=== PATIENT | female | born 1985 | race Caucasian/White ===

== ENCOUNTER 2016-03-26 11:40 | Emergency (ER) | payer MEDICAID ==
[~2016-03-26] VITALS: Ht 152.4 cm; Wt 74.8 kg
[~2016-03-26 11:40] MED LIST: ACDPT PO; ALBU8.5H4 IH; AMX500CIP PO; ASPI-74 PO; BREA1EAC5 MC; CEPH500C PO; CETI10CA PO; CLON0.5T3 PO; DCS100C PO; DULO30CA PO; FAMO20TA5 PO; FRS325T PO; HYDR-3720 PO; IBP800T PO; IBUP800T26 PO; LORA10CA PO; LRT10T PO; MELA5CAP PO; NF-CARB200 PO; NUVA RING VG; OXYC-12 PO; OXYM30SP NS; PREN1TAB19 PO; PREN1TAB39 PO; TRAM50TA2 PO; ZLP10T PO
[2016-03-26] MEDS ORDERED: AMIT75TA2 (12:13)
[2016-03-26] MEDS ORDERED: ALPR0.5T7 (12:13)
[2016-03-26] MEDS ORDERED: GABA600T2 (12:13)
[2016-03-26] MEDS ORDERED: CETI10TA17 (12:13)
[2016-03-26] MEDS ORDERED: LIDOCAINE 2% VISCOUS 15 ML UDC PO ONE (12:45)
[2016-03-26] MEDS ORDERED: ANTACID SUSP 30 ML UDC (MYLANTA) PO ONE (12:45)
--- NOTE | 2016-03-26 12:45 | ED Chest Pain ---
General Chief Complaint: Chest Pain Stated Complaint: CHEST PAIN Nursing Triage Note: PT COMPLAINS OF CHEST/EPIGASTRIC PAIN X3 DAYS THAT COMES AND GOES. Nursing Sepsis Screen: No Definite Risk Source: patient Exam Limitations: no limitations History of Present Illness Time seen by provider: 12:43 Initial Comments To ER with midline epigastric/lower chest pain for 3 days waxing and waning. She does not identify any modifying factors. Food does not affect this. No nausea vomiting shortness of breath. She initially believe this may be a panic attack so she took a Xanax on day 1 of this without any improvement. Timing/Duration: 2-3 days Severity/Quality: moderate Location: central Radiation: no radiation ASA po CARTOGRAPHIC DESIGNER: No NTG SL CARTOGRAPHIC DESIGNER: No Associated Symptoms: No nausea/vomiting, No rash, No shortness of breath, No swelling/lump in chest Allergies and Home Medications Allergies Coded Allergies: latex (Unverified Allergy, 06/24/09) adhesive tape (Verified Adverse Reaction, Intermediate, skin tears, ) Home Medications Alprazolam 0.5 Mg Tablet #54 (Reported) Amitriptyline HCl 75 Mg Tablet #30 (Reported) Cetirizine HCl 10 Mg Tablet #30 (Reported) Gabapentin 600 Mg Tablet #360 (Reported) Review of Systems Constitutional: see HPI EENTM: No Symptoms Reported Respiratory: No Symptoms Reported Cardiovascular: See HPI Chest Pain Gastrointestinal: See HPIDenies Abdominal Pain, Denies Nausea Genitourinary: No Symptoms Reported Musculoskeletal: no symptoms reported Skin: no symptoms reported Psychiatric/Neurological: No Symptoms Reported Endocrine: No Symptoms Reported Hematologic/Lymphatic: No Symptoms Reported Past Zcdnuys-Xztutf-Qlvrrx Hx Patient Social History Alcohol Use: Denies Use Recreational Drug Use: No Smoking Status: Current Everyday Smoker Recent Foreign Travel: No Contact w/Someone Who Travel: No Recent Infectious Disease Expo: No Recent Hopitalizations: Yes (CHILD ) Immunizations Up To Date Date of Influenza Vaccine: Oct 19, 2012 Surgeries HX Surgeries: Yes (, WISDOM TEETH, RIGHT KNEE ARTH) Respiratory Hx Respiratory Disorders: No Cardiovascular Hx Cardiac Disorders: Yes (TACHY) Neurological Hx Neurological Disorders: No Reproductive System Hx Reproductive Disorders: No Female Reproductive Disorders: Denies Genitourinary Hx Genitourinary Disorders: No Gastrointestinal Hx Gastrointestinal Disorders: No Musculoskeletal Hx Musculoskeletal Disorders: No Endocrine Hx Endocrine Disorders: No HEENT HX ENT Disorders: No Cancer Hx Cancer: No Psychosocial Hx Psychiatric Problems: No Integumentary HX Skin/Integumentary Disorder: No Blood Transfusions Hx Blood Disorders: No Family Medical History Significant Family History: No Pertinent Family Hx Family Medial History: Cancer Family history: Diabetes mellitus Psychotic disorder Physical Exam Vital Signs Vital Sign - Last 12Hours 03/26/16 12:09 Temp 98.0 Pulse 81 Resp 18 B/P 115/76 Pulse Ox 98 O2 Delivery Room Air Capillary Refill : Less Than 3 Seconds General Appearance: No Apparent Distress WD/WN HEENT: PERRL/EOMI TMs Normal Neck: Full Range of Motion Normal Inspection Respiratory: Lungs Clear Normal Breath Sounds No Accessory Muscle Use No Respiratory Distress Cardiovascular: Regular Rate, Rhythm Normal Peripheral Pulses Gastrointestinal: Normal Bowel Sounds Non Tender Soft Extremity: Normal Capillary Refill Normal Inspection Neurologic/Psychiatric: Alert Oriented x3 No Motor/Sensory Deficits Skin: Normal Color Warm/Dry Progress/Results/Core Measures Results/Orders Lab Results Laboratory Tests Test 03/26/16 13:00 03/26/16 13:14 Range/Units Alanine Aminotransferase (ALT/SGPT) 45 0-55 U/L Albumin 4.1 3.2-4.5 G/DL Alkaline Phosphatase 69 40-136 U/L Anion Gap 9 5-14 MMOL/L Aspartate Amino Transf (AST/SGOT) 30 5-34 U/L BUN/Creatinine Ratio 8 Basophils # (Auto) 0.0 0.0-0.1 10^3/uL Basophils (%) (Auto) 0 0-10 % Blood Urea Nitrogen 6 L 7-18 MG/DL Calcium Level 8.9 8.5-10.1 MG/DL Carbon Dioxide Level 25 21-32 MMOL/L Chloride Level 105 98-107 MMOL/L Creatinine 0.73 0.60-1.30 MG/DL Eosinophils # (Auto) 0.2 0.0-0.3 10^3/uL Eosinophils (%) (Auto) 3 0-10 % Estimat Glomerular Filtration Rate > 60 Glucose Level 91 70-105 MG/DL Hematocrit 38 35-52 % Hemoglobin 12.9 11.5-16.0 G/DL Lipase 18 8-78 U/L Lymphocytes # (Auto) 1.7 1.0-4.0 X 10^3 Lymphocytes (%) (Auto) 30 12-44 % Mean Corpuscular Hemoglobin 30 25-34 PG Mean Corpuscular Hemoglobin Concent 34 32-36 G/DL Mean Corpuscular Volume 87 80-99 FL Mean Platelet Volume 9.2 7.4-10.4 FL Monocytes # (Auto) 0.3 0.0-1.0 X 10^3 Monocytes (%) (Auto) 5 0-12 % Neutrophils # (Auto) 3.5 1.8-7.8 X 10^3 Neutrophils (%) (Auto) 61 42-75 % Platelet Count 218 130-400 10^3/uL Potassium Level 3.8 3.6-5.0 MMOL/L Red Blood Count 4.37 4.35-5.85 10^6/uL Red Cell Distribution Width 13.6 10.0-14.5 % Sodium Level 139 135-145 MMOL/L Total Bilirubin 0.5 0.1-1.0 MG/DL Total Protein 7.0 6.4-8.2 G/DL White Blood Count 5.8 4.3-11.0 10^3/uL Urine Bacteria NEGATIVE /HPF Urine Bilirubin NEGATIVE NEGATIVE Urine Casts NONE /LPF Urine Clarity CLEAR Urine Color YELLOW Urine Crystals NONE /LPF Urine Culture Indicated NO Urine Glucose (UA) NEGATIVE NEGATIVE Urine Ketones NEGATIVE NEGATIVE Urine Leukocyte Esterase NEGATIVE NEGATIVE Urine Mucus NEGATIVE /LPF Urine Nitrite NEGATIVE NEGATIVE Urine Protein NEGATIVE NEGATIVE Urine RBC NONE /HPF Urine RBC (Auto) NEGATIVE NEGATIVE Urine Specific [place]ster 1.015 L 1.016-1.022 Urine Squamous Epithelial Cells >50 H /HPF Urine Urobilinogen NORMAL NORMAL MG/DL Urine WBC NONE /HPF Urine pH 8 5-9 Louise Murillo-ALCIDES RYDER [facility] NURSE Cbc With Automated Diff (03/26/16 12:38) Comprehensive Metabolic Panel (03/26/16 12:38) Lipase (03/26/16 12:38) Ua Culture If Indicated (03/26/16 12:38) Antacid Suspension (Mylanta Suspension (03/26/16 12:45) Lidocaine 2% Viscous 15 Ml (Xylocaine Vi (03/26/16 12:45) Saline Lock/Iv-Start (03/26/16 12:42) Saline Lock/Iv-Start (03/26/16 12:42) Ekg Tracing (03/26/16 12:43) Us Gallbladder 01855 (03/26/16 13:27) Medications Given in ED Current Medications Medications Dose Ordered Sig/Bola Route Start Time Stop Time Status Last Admin Dose Admin Al Hydrox/Mg Hydrox/Simethicone 30 ml ONCE ONCE PO 03/26/16 12:45 03/26/16 12:46 DC 03/26/16 12:47 30 ML Lidocaine HCl 15 ml ONCE ONCE PO 03/26/16 12:45 03/26/16 12:46 DC 03/26/16 12:47 15 ML Vital Signs/I&O Vital Sign - Last 12Hours 03/26/16 12:09 Temp 98.0 Pulse 81 Resp 18 B/P 115/76 Pulse Ox 98 O2 Delivery Room Air Blood Pressure Mean: 89 Departure Communication Progress Notes 1401-no improvement after GI cocktail. Bilateral ultrasound was unremarkable. Patient states "I wonder if this could all just be stress". States that her sister and sister's figeetha are living with her along with her child and has been under increased stress lately. Impression Impression: Primary Impression: Epigastric pain Disposition: HOME, SELF-CARE Condition: Stable Departure-Patient Inst. Decision time for Depature: 13:59 Referrals: [facility] (PCP/Family) Primary Care Physician Patient Instructions: Chest Pain, Acid Reflux (Gastroesophageal Reflux Disease) , Adult (DC) Add. Discharge Instructions: 1. Take the S foam cutting supervisor as directed 2. Follow-up with your doctor next week 3. Return to ER for any worsening All discharge instructions reviewed with patient and/or family. Voiced understanding. ALCIDES RYDER APRN Mar 26, 2016 12:45
[2016-03-26 13:08] LABS: BASOPHILS % (AUTO) 0 % (0-10); EOSINOPHILS # (AUTO) 0.2 10^3/uL (0.0-0.3); EOSINOPHILS % (AUTO) 3 % (0-10); LYMPHOCYTES # (AUTO) 1.7 X 10^3 (1.0-4.0); LYMPHOCYTES % (AUTO) 30 % (12-44); MEAN CORPUSCULAR HEMOGLOBIN 30 PG (25-34); MEAN CORPUSCULAR HGB CONC 34 G/DL (32-36); MEAN CORPUSCULAR VOLUME 87 FL (80-99); MEAN PLATELET VOLUME 9.2 FL (7.4-10.4); MONOCYTES # (AUTO) 0.3 X 10^3 (0.0-1.0); MONOCYTES % (AUTO) 5 % (0-12); NEUTROPHILS # (AUTO) 3.5 X 10^3 (1.8-7.8); NEUTROPHILS % (AUTO) 61 % (42-75); PLATELET COUNT 218 10^3/uL (130-400); RED BLOOD COUNT 4.37 10^6/uL (4.35-5.85); RED CELL DISTRIBUTION WIDTH 13.6 % (10.0-14.5); WHITE BLOOD COUNT 5.8 10^3/uL (4.3-11.0)
[2016-03-26 13:17] LABS: BILIRUBIN,URINE NEGATIVE (NEGATIVE); KETONES,URINE NEGATIVE (NEGATIVE); LEUKOCYTE ESTERASE ,URINE NEGATIVE (NEGATIVE); NITRITE,URINE NEGATIVE (NEGATIVE); PH,URINE 8 (5-9); PROTEIN,URINE NEGATIVE (NEGATIVE); UROBILINOGEN,URINE NORMAL (NORMAL)
[2016-03-26 13:23] LABS: SQUAMOUS EPITHELIAL CELL,UR >50 /HPF
[2016-03-26 13:25] LABS: ALANINE AMINOTRANSFERASE 45 U/L (0-55); ALBUMIN 4.1 G/DL (3.2-4.5); ANION GAP 9 MMOL/L (5-14); ASPARTATE AMINO TRANSFERASE 30 U/L (5-34); BILIRUBIN,TOTAL 0.5 MG/DL (0.1-1.0); BLOOD UREA NITROGEN 6 MG/DL (7-18); BUN/CREATININE RATIO 8; CALCIUM 8.9 MG/DL (8.5-10.1); CARBON DIOXIDE 25 MMOL/L (21-32); CHLORIDE 105 MMOL/L (98-107); CREATININE SERUM 0.73 MG/DL (0.60-1.30); GFR ESTIMATED > 60; GLUCOSE 91 MG/DL (70-105); LIPASE 18 U/L (8-78); POTASSIUM 3.8 MMOL/L (3.6-5.0); SODIUM 139 MMOL/L (135-145)
[2016-03-26 14:09] VITALS: BP 123/78
--- NOTE | 2016-03-26 14:44 | Diagnostic Imaging Report ---
PROCEDURE: US Gallbladder. TECHNIQUE: Multiple real-time grayscale images were obtained over the right upper quadrant in various projections. INDICATION: Sharp mid epigastric pain radiating to the chest. COMPARISON: None. DISCUSSION: Sonographic evaluation of the right upper quadrant was performed. The liver appears normal in echotexture and size. No hepatic mass identified. The gallbladder appears normal without evidence of cholelithiasis, wall thickening, or pericholecystic fluid. No evidence of biliary duct dilatation. The common bile duct is normal measuring 0.5 cm. The pancreas is mostly obscured due to overlying bowel gas. The right kidney appears normal in echotexture and size without evidence of hydronephrosis or renal mass. The right kidney measures 10.4 cm. There is no ascites or abnormal bowel loops identified. No sonographic Rios sign was reported. IMPRESSION: 1. Unremarkable right upper quadrant ultrasound. Dictated by: Dictated on workstation # [id number]
== END 2016-03-26 14:09 | disposition home or self-care (01) ==
LOC: EDUNIT# 11:40 → ER 11:42
DX: R10.13 Epigastric pain (principal); F17.210 Nicotine dependence, cigarettes, uncomplicated
CPT/HCPCS: 36415; 76705; 80053; 81000; 83690; 85025; 93005

== ENCOUNTER → 2017-09-15 | Outpatient (CLI) | payer MEDICAID ==
[~2017-09-15] MED LIST changes: +ALPR0.5T7; +AMIT75TA2; +CETI10TA17; +GABA600T2
--- NOTE | 2017-09-15 13:15 | Diagnostic Imaging Report ---
INDICATION: Wrist pain. Three views were obtained. FINDINGS: The alignment is normal. There is no fracture or dislocation. Soft tissues are unremarkable. IMPRESSION: No acute fracture or dislocation. Dictated by: Dictated on workstation # [id number]
== END ==
LOC: RAD 12:50
PROVIDERS: ATTEND Nurse Practitioner Family
DX: M25.532 Pain in left wrist (principal)
CPT/HCPCS: 73110

== ENCOUNTER 2018-01-22 14:00 | Emergency (ER) | payer SELFPAY ==
[~2018-01-22] VITALS: Ht 154.9 cm; Wt 73.5 kg
--- NOTE | 2018-01-22 14:14 | ED GU-Female ---
General Stated Complaint: TUBES TIED,STATES SHE IS Source: patient Exam Limitations: no limitations History of Present Illness Date Seen by Provider: Jan 22, 2018 Time Seen by Provider: 14:13 Initial Comments To ER with reports of positive test at home. In the past 24 hours she has taken 6 tests, 4 of which "have been positive but the lines went away really quickly". Last menstrual period 26 days ago. Follow-up with Dr. Jamil. No abdominal pain. No fevers chills or lightheadedness. Timing/Duration: yesterday (first positive test was yesterday.) Radiation: none Activities at Onset: none Prior Genitourinary Problems: none Allergies and Home Medications Allergies Coded Allergies: latex (Unverified Allergy, Unknown, 03/26/16) adhesive tape (Verified Adverse Reaction, Intermediate, skin tears, ) Patient Home Medication List Home Medication List Reviewed: Yes Review of Systems Review of Systems Constitutional: see HPI EENTM: see HPI Respiratory: no symptoms reported Cardiovascular: no symptoms reported Genitourinary: no symptoms reported Musculoskeletal: no symptoms reported Skin: no symptoms reported Psychiatric/Neurological: No Symptoms Reported Endocrine: No Symptoms Reported Hematologic/Lymphatic: No Symptoms Reported Past Esedesf-Xazqzn-Zwukrj Hx Patient Social History Recent Foreign Travel: No Contact w/Someone Who Travel: No Recent Hopitalizations: Yes (CHILD ) Immunizations Up To Date Date of Influenza Vaccine: Oct 19, 2012 Past Medical History Reproductive Disorders: No Female Reproductive Disorders: Denies Family Medical History Cancer (PT'S SON) Family history: Diabetes mellitus Psychotic disorder No Pertinent Family Hx Physical Exam Vital Signs Capillary Refill : Height, Weight, BMI Height: 5'0" Weight: 165lbs. oz. [id number]; BMI Method:Stated General Appearance: WD/WN, no apparent distress HEENT: PERRL/EOMI, normal ENT inspection Neck: non-tender, full range of motion Cardiovascular: regular rate, rhythm, no murmur Respiratory: no respiratory distress, no accessory muscle use Gastrointestinal: normal bowel sounds, non tender, soft; No tenderness Extremities: normal range of motion, non-tender Neurologic/Psychiatric: alert, normal mood/affect, oriented x 3 Skin: normal color, warm/dry Progress/Results/Core Measures Suspected Sepsis SIRS Temperature: Pulse: Respiratory Rate: Blood Pressure / Mean: Results/Orders My Orders Orders - ALCIDES RYDER APRN Ua Culture If Indicated (01/22/18 14:07) Hcg,Quantitative (01/22/18 14:07) Urine Bedside (01/22/18 14:07) Cbc With Automated Diff (01/22/18 14:07) Vital Signs/I&O Capillary Refill : Point of Care Testing Urine -Bedside: Negative Departure Impression Primary Impression: test negative Disposition: 01 HOME, SELF-CARE Condition: Stable Departure-Patient Inst. Decision time for Depature: 14:15 Referrals: [facility] (PCP/Family) Primary Care Physician Patient Instructions: Tests ALCIDES RYDER APRN Jan 22, 2018 14:14
[2018-01-22 14:19] LABS: BILIRUBIN,URINE NEGATIVE (NEGATIVE); CLARITY,URINE CLEAR; COLOR,URINE YELLOW; GLUCOSE, URINE (UA) NEGATIVE (NEGATIVE); KETONES,URINE NEGATIVE (NEGATIVE); LEUKOCYTE ESTERASE ,URINE NEGATIVE (NEGATIVE); NITRITE,URINE NEGATIVE (NEGATIVE); PH,URINE 8 (5-9); PROTEIN,URINE NEGATIVE (NEGATIVE); UROBILINOGEN,URINE 1 MG/DL (NORMAL)
[2018-01-22 14:25] LABS: BACTERIA,URINE FEW /HPF; SQUAMOUS EPITHELIAL CELL,UR 25-50 /HPF; WBC,URINE RARE /HPF
[2018-01-22 14:28] LABS: BASOPHILS % (AUTO) 0 % (0-10); EOSINOPHILS # (AUTO) 0.2 10^3/uL (0.0-0.3); EOSINOPHILS % (AUTO) 3 % (0-10); HEMATOCRIT 35 % (35-52); HEMOGLOBIN 11.6 G/DL (11.5-16.0); LYMPHOCYTES # (AUTO) 1.4 X 10^3 (1.0-4.0); LYMPHOCYTES % (AUTO) 20 % (12-44); MEAN CORPUSCULAR HEMOGLOBIN 29 PG (25-34); MEAN CORPUSCULAR HGB CONC 33 G/DL (32-36); MEAN CORPUSCULAR VOLUME 89 FL (80-99); MEAN PLATELET VOLUME 9.2 FL (7.4-10.4); MONOCYTES # (AUTO) 0.5 X 10^3 (0.0-1.0); MONOCYTES % (AUTO) 7 % (0-12); NEUTROPHILS # (AUTO) 5.1 X 10^3 (1.8-7.8); NEUTROPHILS % (AUTO) 71 % (42-75); PLATELET COUNT 245 10^3/uL (130-400); RED BLOOD COUNT 3.94 10^6/uL (4.35-5.85); RED CELL DISTRIBUTION WIDTH 13.2 % (10.0-14.5); WHITE BLOOD COUNT 7.2 10^3/uL (4.3-11.0)
[2018-01-22 22:24] VITALS: BP 116/88
== END 2018-01-22 15:07 | disposition home or self-care (01) ==
LOC: EDUNIT# 14:00 → ER 14:02
DX: Z32.02 Encounter for pregnancy test, result negative (principal); Z91.040 Latex allergy status; Z91.048 Other nonmedicinal substance allergy status
CPT/HCPCS: 36415; 81000; 84702; 84703; 85025

== ENCOUNTER → 2018-05-03 | Outpatient (CLI) | payer OTHER ==
[~2018-05-03] MED LIST changes: -GABA600T2; +GBPN600T
--- NOTE | 2018-05-03 12:14 | Diagnostic Imaging Report ---
EXAMINATION: Magnetic resonance imaging of the right knee without intravenous contrast DATE: May 03, 2018. COMPARISON: Right knee radiographs September 29, 2015. INDICATION: 32-year-old female, right medial knee pain and swelling. History of prior arthroscopy. TECHNIQUE: Multiplanar, multisequence non contrast enhanced MR imaging was accomplished. FINDINGS: MENISCI: The medial meniscus is intact. The lateral meniscus is intact. LIGAMENTS AND TENDONS: The anterior and posterior cruciate ligaments are intact. The medial collateral ligament is intact. The iliotibial band, mid third lateral capsular ligament, fibular collateral ligament, biceps femoris tendon and conjoined tendon are intact. The quadriceps tendon and patella ligament are intact. JOINT: The articular cartilage surfaces are intact. There is no knee joint effusion, prominent synovitis, or intra-articular body. BONE: There is unremarkable bone marrow signal. Specifically, negative for fracture, osteomyelitis, osteonecrosis, or marrow replacing process. BURSAE AND SOFT TISSUES: No Bakers cyst. IMPRESSION: 1. Unremarkable MRI right knee. Dictated by: Dictated on workstation # [id number]
== END ==
LOC: RAD 07:55
PROVIDERS: ATTEND Nurse Practitioner Community Health
DX: M25.461 Effusion, right knee (principal); Z98.890 Other specified postprocedural states
CPT/HCPCS: 73721

== ENCOUNTER 2018-05-12 10:22 | Outpatient (RCR) | payer OTHER | END 2018-07-24 15:27 | disposition home or self-care (01) | PROVIDERS: ATTEND Orthopaedic Surgery | DX: M25.561 Pain in right knee (principal) ==

== ENCOUNTER 2018-12-25 02:18 | Emergency (ER) | payer OTHER ==
[~2018-12-25] VITALS: Ht 153 cm; Wt 70.5 kg
[2018-12-25 02:27] VITALS: BP 105/73
== END 2018-12-25 03:44 | disposition left against medical advice (07) ==
LOC: EDUNIT# 02:18 → ER 02:20
DX: R68.84 Jaw pain (principal); K08.89 Other specified disorders of teeth and supporting structures
CPT/HCPCS: 99282